=== PATIENT | female | born 1985 | race Caucasian/White ===

== ENCOUNTER → 2017-01-06 | Outpatient (CLI) | payer OTHER ==
[2014-07-23 05:09] VITALS: BP 134/80
[~2017-01-06] MED LIST: ZOLOFT PO
== END ==
LOC: RAD 13:11
DX: M25.531 Pain in right wrist (principal)

== ENCOUNTER → 2017-06-07 | Outpatient (CLI) | payer OTHER ==
[2014-07-23 05:09] VITALS: BP 134/80
[2017-06-07 10:00] LABS: STREP SCREEN NEGATIVE (NEGATIVE)
== END ==
LOC: LAB 09:36
PROVIDERS: Family Medicine
DX: J06.9 Acute upper respiratory infection, unspecified (principal); Z88.1 Allergy status to other antibiotic agents; Z88.5 Allergy status to narcotic agent; Z88.0 Allergy status to penicillin

== ENCOUNTER → 2022-06-22 | Outpatient (CLI) | payer BC ==
[2022-06-22 07:52] LABS: BASO # 0.04 K/mm3 (0.02-0.10); EOS # 0.17 K/mm3 (0.04-0.40); HEMATOCRIT 41.3 % (37.0-47.0); HEMOGLOBIN 13.8 g/dL (12.5-16.0); LYMPH# 1.54 K/mm3 (1.50-4.00); MEAN CELL VOLUME 84 fl (78-100); MEAN CORPUSCULAR HEMOGLOBIN 28 pg (27-31); MEAN CORPUSCULAR HGB CONC 33 g/dL (33-37); MEAN PLATELET VOLUME 10.7 fl (7.4-10.4); MONO # 0.54 K/mm3 (0.20-0.80); NEU # 3.41 K/mm3 (1.40-6.50); PLATELET COUNT 252 K/mm3 (130-400); RED BLOOD COUNT 4.92 M/mm3 (4.10-5.30); RED CELL DISTRIBUTION WIDTH 13.6 % (11.5-14.5); WHITE BLOOD COUNT 5.7 K/mm3 (4.8-10.8)
[2022-06-22 07:57] LABS: POTASSIUM 4.4 mmol/L (3.5-5.1)
[2022-06-22 07:59] LABS: CALCIUM 9.3 mg/dL (8.3-10.5)
[2022-06-22 08:00] LABS: TOTAL PROTEIN 7.4 g/dL (6.4-8.3)
[2022-06-22 08:02] LABS: TOTAL BILIRUBIN 0.6 mg/dL (0.2-1.2)
== END ==
LOC: LAB 07:13
PROVIDERS: Nurse Practitioner
DX: Z00.00 Encounter for general adult medical examination without abnormal findings (principal)